=== PATIENT | male | born 1970 | race Caucasian/White ===

== ENCOUNTER 2020-09-26 11:52 | Observation (INO) | payer SELFPAY ==
--- NOTE | 2020-09-26 12:53 | RAD ---
PORTABLE CHEST 1 VIEW: DATE: 09/26/2020. TIME: 12:30 PM. HISTORY: Chest pain and shortness of breath. COMPARISON: 08/27/2002. FINDINGS: The heart size is normal. The lungs are expanded without lobar consolidation, pneumothoraces, or ple ural effusions. IMPRESSION: No acute process. POS: OFF
[2020-09-26 14:06] LABS: #Basophils 0.1 thou/uL (0.0-0.2); #Eosinphils 0.2 thou/uL (0.0-0.7); #Lymphocytes 2.2 thou/uL (1.20-3.40); #Neutrophils 7.1 thou/uL (1.40-6.50); %Basophils 0.7 % (0.0-1.0); %Eosinophils 2.1 % (0.0-10.0); %Lymphocytes 21.1 % (21.0-51.0); %Neutrophils 67.2 % (42.0-75.0); Hemoglobin 16.7 g/dL (14.0-18.0); Mean Corpuscular HGB CONC 33.7 g/dL (32.0-36.0); Mean Corpuscular Hemoglobin 32.4 pg (27.0-31.0); Mean Corpuscular Volume 95.9 fL (78.0-98.0); Mean Platelet Volume 8.2 fL (7.4-10.4); Platelet Count 251 thou/uL (130-400); RBC Distribution Width 11.7 % (11.5-14.5); Red Blood Cell (RBC) Count 5.16 mill/uL (4.70-6.10); White Blood Cell (WBC) Count 10.6 thou/uL (4.8-10.8)
[2020-09-26 14:09] LABS: ALT (SGPT) 25 U/L (8-55); AST (SGOT) 18 U/L (5-34); Albumin 4.3 g/dL (3.5-5.0); Alkaline Phosphatase 71 U/L (40-110); Anion Gap 13 mmol/L (10-20); BUN (Urea Nitrogen) 13 mg/dL (8.9-20.6); Bilirubin, Total 0.5 mg/dL (0.2-1.2); Calc. Creatinine Clearance 0 mL/min (70-130); Calcium 9.3 mg/dL (7.8-10.44); Carbon Dioxide 22 mmol/L (22-29); Chloride 105 mmol/L (98-107); Glucose 128 mg/dL (70-105); Lipase 16 U/L (8-78); Potassium 3.9 mmol/L (3.5-5.1); Protein, Total 7.3 g/dL (6.0-8.3); Sodium 136 mmol/L (136-145)
[2020-09-26] MEDS ORDERED: Aspirin Chewable 81 MG TAB ONE (14:09)
--- NOTE | 2020-09-26 16:30 | PDOC.FPRHP ---
- History of Present Illness Chief Complaint: CP History of Present Illness: Pt is a 50yo male w/ hx of GERD, tobacco abuse and obesity who presents with CP. Pain started today while at rest, located in center of chest with radiation to back. felt like pressure "something sitting on my chest", lasted 45min, went away with rest. Associated nausea and SOB. Last night he started feeling "weird", had mild SOB and numbness/tingling of his hands and feet. He went to sleep and when he woke up this morning he felt fine. He has not had an episode like this in the past. He does not have a PCP and does not take any meds. He smokes 1 pack of cigarettes per day for 14 years. His father has a history of CABG x4. 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 Mom- drug abuse, cancer Social: Smokes 1 pack cigarettes per day x 14 years, drinks once every few months, no drug use - Review of Systems General: denies: fever/chills, weight/appetite/sleep changes Eyes: denies: eye pain, vision changes ENT: denies: nasal congestion, rhinorrhea Respiratory: reports: shortness of breath. denies: cough, congestion Cardiovascular: reports: chest pain. denies: edema, orthopnea Gastrointestinal: reports: nausea. denies: vomiting, diarrhea Genitourinary: denies: dysuria Skin: denies: rashes Musculoskeletal: denies: pain, tenderness Neurological: reports: numbness. denies: syncope Psychological: denies: anxiety, depression - Vital signs BP: 142/98, HR 76, RR 16, T 97.7, O2 98% on RA, Wt 133 kg - Physical Exam Constitutional: NAD, awake, alert and oriented HEENT: normocephalic and atraumatic, no scleral icterus, grossly normal vision, grossly normal hearing Neck: supple, FROM, no JVD Chest: no-tender to palpation, no lesions Heart: RRR, normal S1/S2, no murmurs/rubs/gallops, pulses present, no edema Lungs: CTAB, no respiratory distress, no wheezing Abdomen: soft, non-tender, bowel sounds present Musculoskeletal: normal structure, normal tone, ROM grossly normal Neurological: no focal deficit Skin: no rash/lesions, capillary refill <2 seconds, no jaundice Heme/Lymphatic: no unusual bruising or bleeding Psychiatric: normal mood and affect, good judgment and insight, intact recent and remote memory FMR H&P: Results - Labs Result Diagrams: 09/26/20 13:58 09/26/20 13:25 Lab results: WBC 10.6 thou/uL (4.8-10.8) 09/26/20 13:58 Hgb 16.7 g/dL (14.0-18.0) 09/26/20 13:58 Hct 49.5 % (42.0-52.0) 09/26/20 13:58 MCV 95.9 fL (78.0-98.0) 09/26/20 13:58 Plt Count 251 thou/uL (130-400) 09/26/20 13:58 Neutrophils % 67.2 % (42.0-75.0) 09/26/20 13:58 Sodium 136 mmol/L (136-145) 09/26/20 13:25 Potassium 3.9 mmol/L (3.5-5.1) 09/26/20 13:25 Chloride 105 mmol/L (98-107) 09/26/20 13:25 Carbon Dioxide 22 mmol/L (22-29) 09/26/20 13:25 BUN 13 mg/dL (8.9-20.6) 09/26/20 13:25 Creatinine 1.00 mg/dL (0.7-1.3) 09/26/20 13:25 Glucose 128 mg/dL (70-105) H 09/26/20 13:25 Calcium 9.3 mg/dL (7.8-10.44) 09/26/20 13:25 Total Bilirubin 0.5 mg/dL (0.2-1.2) 09/26/20 13:25 AST 18 U/L (5-34) 09/26/20 13:25 ALT 25 U/L (8-55) 09/26/20 13:25 Alkaline Phosphatase 71 U/L (40-110) 09/26/20 13:25 Serum Total Protein 7.3 g/dL (6.0-8.3) 09/26/20 13:25 Albumin 4.3 g/dL (3.5-5.0) 09/26/20 13:25 Lipase 16 U/L (8-78) 09/26/20 13:25 - EKG Interpretation EKG: reviewed: NSR, no ST changes FMR H&P: A/P - Plan Pt is a 50yo male with hx of GERD, obesity and tobacco abuse who presens with CP #Typical Chest Pain 2/2 GERD vs ACS -ekg: NSR, no ST changes -trop <0.01, will trend -Heart Score 5 -s/p aspirin and 1L IVF in ED -pending stress test in am, will consult cards if abnormal -will start protonix daily and can discharge on this med if stress normal -pending risk stratifying labs -admit to tele for continuous monitor #Hx of GERD s/p [place] fundoplication -not on any meds, no PCP -protonix as above #Tobacco Abuse -encourage cessation Code: Full PCP: CC IVF: SL Diet: HH, NPO Midnight Dispo: Admit tele obs, pending stress in am FMR H&P: Upper Level - Plan Date/Time: 09/26/20 1630 Jeremy West [email or web address], have evaluated this patient and agree with findings/plan as outlined by network intern resident. Pertinent changes/additions are listed here. 50-year-old male with past medical history of obesity and GERD status post [place] fundoplication who presents for chest pain. Chest pain presented yesterday, in the sternum, pressure-like character with no radiation or transforming factors. It has spontaneously resolved. Related tingling in fingers and toes when he was feeling the chest pain. On exam he is hypertensive but otherwise has normal vitals, heart has regular rate and rhythm with no murmurs, lungs clear to auscultation bilaterally, pain is not reproducible, lower extremities do not have edema Assessment and plan Chest pain secondary to GERD, rule out ACS considering history this is likely secondary to GERD. However he has considerable risk factors with his obesity And would benefit from risk stratification. First troponin is negative, normal chest x-ray, normal EKG. Will admit to telemetry for observation. Trend troponins, fasting lipid panel in the morning, TSH magnesium and Phos,. We will keep him n.p.o. at midnight and plan to stress test tomorrow. Will give 1 dose of pantoprazole in hopes that it resolves the pain medical terminologist but will risk stratify regardless. GERD Start Protonix per plan above Code: Full Dispo: For observation, expect less than 2 midnights Diet: Heart healthy, n.p.o. at midnight Fluids: KVO Addendum - Attending - Attending Attestation Date/Time: 09/26/20 4322 I personally evaluated the patient and discussed the management with Dr. Lynch. I agree with the History, Examination, Assessment and Plan documented above with any addition or exceptions noted below.
[2020-09-26] MEDS ORDERED: Ondansetron ODT 4 MG TAB PO PRN (16:51)
[2020-09-26] MEDS ORDERED: Acetaminophen 325 MG TAB PO PRN (16:51)
[2020-09-26] MEDS ORDERED: Ondansetron PF 4 MG/2 ML Vial IVP PRN (16:51)
[2020-09-26 17:57] VITALS: BMI 39.7
[2020-09-26 18:11] LABS: Phosphorus 3.6 mg/dL (2.3-4.7); Troponin I Less than 0.010 ng/mL (< 0.028)
[2020-09-26 21:40] LABS: Troponin I Less than 0.010 ng/mL (< 0.028)
[2020-09-26 23:10] LABS: Hemoglobin A1c 5.2 % (4.0-6.0)
[2020-09-27 04:13] LABS: SARS-CoV-2 PCR by NAA Not Detected (NotDetected)
[2020-09-27 05:16] LABS: Cardiac Risk 4.9 (Less than 4.5)
--- NOTE | 2020-09-27 05:57 | PDOC.FM ---
- Subjective Subjective: Pt doing well this morning. States his CP has resolved. He is currently NPO awaiting stress test this morning - Objective Vital Signs & Weight: Weight Weight 133 kg Result Diagrams: 09/26/20 13:58 09/26/20 13:25 Phys Exam - Physical Examination Constitutional: NAD Neck: supple, full ROM Respiratory: no wheezing, clear to auscultation bilateral Cardiovascular: RRR, no significant murmur Gastrointestinal: soft, non-tender, no distention Musculoskeletal: no edema Neurological: non-focal Psychiatric: normal affect, A&O x 3 Dx/Plan - Plan Plan: Pt is a 50yo male with hx of GERD, obesity and tobacco abuse who presens with CP #Typical Chest Pain 2/2 GERD vs ACS -ekg: NSR, no ST changes -trop <0.01 x3 -Heart Score 5 -s/p aspirin and 1L IVF in ED -pending stress test this morning, will consult cards if abnormal -started protonix daily and can discharge on this med if stress normal -admit to tele for continuous monitor -ASCVD 9.1%: will start mod-high intensity statin and recommend f/u with PCP #Hx of GERD s/p Gilda fundoplication -not on any meds, no PCP -protonix as above #Tobacco Abuse -encourage cessation Code: Full PCP: DON IVF: SL Diet: HH, NPO Midnight Dispo: Admit tele obs, pending stress test this am Addendum - Attending - Attending Attestation Date/Time: 09/27/20 9054 I personally evaluated the patient and discussed the management with Dr. Lynch. I agree with the History, Examination, Assessment and Plan documented above with any addition or exceptions noted below.
[2020-09-27] MEDS ORDERED: Enoxaparin Sodium 40 MG/0.4 ML SYRINGE ONE (08:10)
[2020-09-27] MEDS: Enoxaparin Sodium 40 MG/0.4 ML SYRINGE SC SCH (08:54)
[2020-09-27] MEDS ORDERED: Atorvastatin Calcium 20 MG TAB PO SCH (21:00)
--- NOTE | 2020-09-28 06:13 | PDOC.FM ---
- Subjective Subjective: Pt resting comfortably. Was able to complete day 1 of stress test yesterday with no reported problems and waiting for second part today. Denies CP, SOB, N/V. - Objective Vital Signs & Weight: Vital Signs (12 hours) Temp Pulse Resp BP Pulse Ox 09/28/20 04:37 98.1 F 59 L 16 156/83 H 96 09/28/20 00:12 98.4 F 52 L 16 132/82 95 09/27/20 20:30 98.7 F 55 L 16 134/98 H 95 Weight Weight 132.903 kg I&O: 09/26/20 09/27/20 09/28/20 06:59 06:59 06:59 Intake Total 730 Output Total 300 Balance 430 Result Diagrams: 09/26/20 13:58 09/26/20 13:25 Phys Exam - Physical Examination Constitutional: NAD HEENT: sclera anicteric Neck: supple, full ROM Respiratory: no wheezing, clear to auscultation bilateral Cardiovascular: RRR, no significant murmur Gastrointestinal: soft, non-tender, no distention Musculoskeletal: no edema, pulses present Neurological: non-focal Psychiatric: normal affect, A&O x 3 Dx/Plan - Plan Plan: Pt is a 50yo male with hx of GERD, obesity and tobacco abuse who presents with CP #Typical Chest Pain 2/2 GERD vs ACS -ekg: NSR, no ST changes -trop <0.01 x3 -Heart Score 5 -s/p aspirin and 1L IVF in ED -pending days 2 of stress test this morning, will consult cards if abnormal -started protonix daily and can discharge on this med if stress normal -admit to tele for continuous monitor -ASCVD 9.1%: will start mod-high intensity statin and recommend f/u with PCP #Hx of GERD s/p Gilda fundoplication -not on any meds, no PCP -protonix as above #Tobacco Abuse -encourage cessation Code: Full PCP: DON IVF: SL Diet: HH, NPO Midnight Dispo: Admit tele obs, pending stress test this am Addendum - Attending - Attending Attestation Date/Time: 09/28/20 5522 I personally evaluated the patient and discussed the management with Dr. Lynch. I agree with the History, Examination, Assessment and Plan documented above with any addition or exceptions noted below.
[2020-09-28 07:20] VITALS: BP 138/87; TEMP 98.8
[2020-09-28] MEDS ORDERED: FLU VACC QS2020-21(6MOS UP)/PF 60 MCG/0.5 ML SYRINGE IM ONE (09:00)
[2020-09-28] MEDS: Enoxaparin Sodium 40 MG/0.4 ML SYRINGE SC SCH (09:01)
--- NOTE | 2020-09-28 09:05 | NM ---
EXAM: CARDIAC SPECT HISTORY: Chest pain TECHNIQUE: A myocardial perfusion scan was performed using the single isotope 2 day protocol with arabella hnetium 99m sestamibi. [32 mCi] was injected intravenously for the rest exam and 30 mCi for the stress study. Exercise stress was monitored and interpreted by Dr. Santamaria FINDINGS: Homogeneous tracer distribution is seen in the myocardial segments on stress and rest image s without fixed or reversible defects. Gated SPECT LVEF: 68% Wall motion exam: Normal IMPRESSION: Normal myocardial perfusion scan
--- NOTE | 2020-09-29 14:52 | DIS ---
DATE OF ADMISSION: 09/26/2020 DATE OF DISCHARGE: 09/28/2020 RESIDENT: Yarelis Lynch, PGY-1 DISCHARGE ATTENDING: Juan C Odne MD. CONSULT: None. PROCEDURES: Nuclear medicine stress test with results of normal myocardial perfusion scan, left ventricular ejection fraction 68%, wall motion exam normal. PRIMARY DIAGNOSES: Typical chest pain, acute coronary syndrome rule out. SECONDARY DIAGNOSES: 1. History of gastroesophageal reflux disease, status post Gilda fundoplication. 2. Tobacco abuse. DISCHARGE MEDICATIONS: 1. Atorvastatin 20 mg daily. 2. Protonix 40 mg daily. HISTORY OF PRESENT ILLNESS: The patient is a 50-year-old male with history of obesity, GERD, tobacco abuse, who presented with chest pain. The chest pain was located in the center of the chest, lasted 45 minutes, felt like pressure sitting on his chest, went away with rest. Never had chest pain like this before. Associated with nausea and shortness of breath. The patient does not have a PCP and does not take any medications on a regular basis. He does smoke 1 pack of cigarettes a day for 14 years. He has a positive family history of his father having a CABG x4. The patient's lab work on admission; white count 10.6, hemoglobin 16.7, hematocrit 49.5, platelets 251. Sodium 136, potassium 3.9, BUN 13, creatinine 1, AST 18, ALT 25. Troponin was negative x3. Chest x-ray showed no acute process. The patient was admitted and planned for nuclear medicine stress test next day. Had to do a 2-day stress test. The patient tolerated procedure well with results as above. Based on the risk stratifying labs, the patient was started on statin and encouraged to establish care with a PCP. With his history of GERD and Gilda fundoplication, it was likely that the chest pain was secondary to that, but he has several risk factors for acute coronary syndrome. DISPOSITION: Stable. DISCHARGE INSTRUCTIONS: 1. Location: Home. 2. Diet: Heart healthy. 3. Activity: As tolerated. 4. Followup: Needs to establish care with PCP to continue getting refills of statin and PPI. Job ID: [id number]
== END 2020-09-28 10:20 | disposition home or self-care (01) ==
LOC: ERS 11:52 → ERHOLD 16:23 → 2NO 09-27 12:43
PROVIDERS: ADMIT Family Medicine; ATTEND Family Medicine
DX: R07.2 Precordial pain (principal); K21.9 Gastro-esophageal reflux disease without esophagitis; F17.210 Nicotine dependence, cigarettes, uncomplicated; I10 Essential (primary) hypertension; E66.9 Obesity, unspecified; Z68.39 Body mass index [BMI] 39.0-39.9, adult; Z20.828 Contact with and (suspected) exposure to other viral communicable diseases; Z89.021 Acquired absence of right finger(s)
CPT/HCPCS: 36415; 71045; 78452; 80053; 80061; 83036; 83690; 83735; 84100; 84443; 84484; 85025; 87635; 93005; 93017; 94760; 96372; A9500; G0378; J1650; U0003; U0005

== ENCOUNTER 2022-02-08 17:26 | Emergency (ER) | payer OTHER, SELFPAY ==
[2022-02-08 18:03] LABS: #Basophils 0.1 thou/uL (0.0-0.2); #Eosinphils 0.3 thou/uL (0.0-0.7); #Lymphocytes 2.3 thou/uL (1.20-3.40); #Monocytes 1.3 thou/uL (0.11-0.59); #Neutrophils 7.6 thou/uL (1.40-6.50); %Basophils 0.7 % (0.0-1.0); %Eosinophils 2.7 % (0.0-10.0); %Lymphocytes 19.9 % (21.0-51.0); %Monocytes 11.5 % (0.0-10.0); %Neutrophils 65.2 % (42.0-75.0); Hemoglobin 17.4 g/dL (14.0-18.0); Mean Corpuscular Hemoglobin 33.1 pg (27.0-31.0); Mean Platelet Volume 8.7 fL (7.4-10.4); Platelet Count 197 thou/uL (130-400); RBC Distribution Width 12.2 % (11.5-14.5); Red Blood Cell (RBC) Count 5.27 mill/uL (4.70-6.10); White Blood Cell (WBC) Count 11.7 thou/uL (4.8-10.8)
[2022-02-08 19:48] LABS: Albumin 4.2 g/dL (3.5-5.0)
[2022-02-08 19:50] LABS: Chloride 106 mmol/L (98-107); Potassium 4.5 mmol/L (3.5-5.1); Sodium 138 mmol/L (136-145)
[2022-02-08 19:51] LABS: Globulin 3.3 g/dL (2.4-3.5); Glucose 95 mg/dL (70-105); Protein, Total 7.5 g/dL (6.0-8.3)
[2022-02-08 19:52] LABS: Anion Gap 17 mmol/L (10-20); Carbon Dioxide 20 mmol/L (22-29)
[2022-02-08 19:54] LABS: Alkaline Phosphatase 68 U/L (40-110); Calc. Creatinine Clearance 0 mL/min (70-130)
[2022-02-08 19:55] LABS: BUN (Urea Nitrogen) 17 mg/dL (8.9-20.6)
[2022-02-08 19:56] LABS: AST (SGOT) 25 U/L (5-34)
[2022-02-08 19:57] LABS: ALT (SGPT) 30 U/L (8-55); Lipase 16 U/L (8-78)
[2022-02-08 20:18] LABS: Calcium 9.4 mg/dL (7.8-10.44)
[2022-02-08] MEDS ORDERED: Ketorolac Tromethamine 30 MG/ML VIAL ONE (20:32)
[2022-02-08 20:34] LABS: Bilirubin, Total 0.5 mg/dL (0.2-1.2)
[2022-02-08 21:01] LABS: Bilirubin Negative (Negative); Blood, Urine 3+ (Negative); Clarity Turbid (Clear); Glucose, Urine (Dipstick) Normal (Negative); Ketone, Urine Negative (Negative); Leukocyte Negative Leu/uL (Negative); Mucous/LPF Rare LPF (<2+); Nitrite Negative (Negative); Protein, Urine (Dipstick) 30 mg/dL (Neg-Trace); RBC/HPF Greater than 50 HPF (0-3); Renal Epithelial 0-3 HPF (None Seen); Specific Gravity, Urine 1.024 (1.002-1.036); Squamous Epithelial 0-3 HPF (0-3); Urobilinogen Normal mg/dL (Less than 2)
[2022-02-08 21:12] LABS: Bacteria/HPF 1+ HPF (None Seen)
[2022-02-08] MEDS ORDERED: Morphine 4 MG/ML VIAL ONE (22:03)
[2022-02-08] MEDS ORDERED: Morphine 2 MG/ML VIAL ONE (22:03)
== END 2022-02-08 22:27 | disposition home or self-care (01) ==
LOC: ERS 17:26
DX: N13.2 Hydronephrosis with renal and ureteral calculous obstruction (principal); K21.9 Gastro-esophageal reflux disease without esophagitis; F17.210 Nicotine dependence, cigarettes, uncomplicated
CPT/HCPCS: 36415; 74176; 80053; 81003; 81015; 83690; 85025; 96374; 96375; J1885; J2270

== ENCOUNTER 2022-02-09 09:21 | Day surgery (SDC) | payer OTHER, SELFPAY ==
[2022-02-09 10:27] LABS: #Basophils 0.1 thou/uL (0.0-0.2); #Eosinphils 0.1 thou/uL (0.0-0.7); #Lymphocytes 1.8 thou/uL (1.20-3.40); #Monocytes 1.5 thou/uL (0.11-0.59); #Neutrophils 9.2 thou/uL (1.40-6.50); %Basophils 0.5 % (0.0-1.0); %Eosinophils 1.2 % (0.0-10.0); %Lymphocytes 14.3 % (21.0-51.0); %Monocytes 11.4 % (0.0-10.0); %Neutrophils 72.6 % (42.0-75.0); Hemoglobin 16.2 g/dL (14.0-18.0); Mean Corpuscular HGB CONC 31.9 g/dL (32.0-36.0); Mean Corpuscular Hemoglobin 32.1 pg (27.0-31.0); Mean Platelet Volume 9.1 fL (7.4-10.4); Platelet Count 153 thou/uL (130-400); RBC Distribution Width 12.1 % (11.5-14.5); Red Blood Cell (RBC) Count 5.03 mill/uL (4.70-6.10); White Blood Cell (WBC) Count 12.7 thou/uL (4.8-10.8)
[2022-02-09] MEDS ORDERED: Ondansetron PF 4 MG/2 ML Vial ONE ×2 (10:49→14:32)
[2022-02-09] MEDS ORDERED: Ketorolac Tromethamine 30 MG/ML VIAL ONE ×2 (10:49→14:32)
[2022-02-09 11:39] LABS: Bacteria/HPF None Seen HPF (None Seen); Bilirubin Negative (Negative); Blood, Urine 2+ (Negative); Clarity Clear (Clear); Glucose, Urine (Dipstick) Normal (Negative); Ketone, Urine Negative (Negative); Leukocyte 25 Leu/uL (Negative); Nitrite Negative (Negative); Protein, Urine (Dipstick) 20 mg/dL (Neg-Trace); Specific Gravity, Urine 1.033 (1.002-1.036); Urobilinogen Normal mg/dL (Less than 2); pH, Urine 5.5 (5.0-9.0)
[2022-02-09] MEDS ORDERED: cefTRIAXone\\ROCEPHIN 2 GM VIAL ONE (11:51)
[2022-02-09] MEDS ORDERED: fentaNYL Citrate/PF 100 MCG/2 ML SYRINGE ONE (12:49)
[2022-02-09 13:05] LABS: SARS-CoV-2 NAA Rapid Test Not Detected (NotDetected)
[2022-02-09 13:48] LABS: ALT (SGPT) 21 U/L (8-55); AST (SGOT) 17 U/L (5-34); Albumin 3.6 g/dL (3.5-5.0); Alkaline Phosphatase 58 U/L (40-110); Anion Gap 14 mmol/L (10-20); BUN (Urea Nitrogen) 21 mg/dL (8.9-20.6); Bilirubin, Total 0.7 mg/dL (0.2-1.2); Calc. Creatinine Clearance 0 mL/min (70-130); Carbon Dioxide 21 mmol/L (22-29); Chloride 105 mmol/L (98-107); Globulin 2.9 g/dL (2.4-3.5); Glucose 83 mg/dL (70-105); Potassium 4.2 mmol/L (3.5-5.1); Protein, Total 6.5 g/dL (6.0-8.3); Sodium 136 mmol/L (136-145)
[2022-02-09] MEDS ORDERED: Iopamidol 15 ML ONE (14:22)
[2022-02-09] MEDS ORDERED: Levofloxacin 500 mg/D5W 100 ml Premix Bag ONE (14:32)
[2022-02-09] MEDS ORDERED: Lidocaine 1% PF 5 ML VIAL ONE (14:32)
[2022-02-09] MEDS ORDERED: PROPOFOL 200 MG/20 ML VIAL ONE (14:32)
[2022-02-09] MEDS ORDERED: Dexamethasone 20 MG/5 ML VIAL ONE (14:32)
[2022-02-09] MEDS ORDERED: Phenazopyridine HCl 100 MG TAB ONE (15:41)
[2022-02-09] MEDS ORDERED: Oxybutynin 5 MG TAB ONE (15:41)
== END 2022-02-09 16:30 | disposition home or self-care (01) ==
LOC: ERS 09:21 → SDC 13:49
PROVIDERS: ATTEND Urology
PROC: 0TC68ZZ Extirpation of Matter from Right Ureter, Via Natural or Artificial Opening Endoscopic (ICD-10-PCS; principal; 2022-02-09)
PROC: 0T768DZ Dilation of Right Ureter with Intraluminal Device, Via Natural or Artificial Opening Endoscopic (ICD-10-PCS; principal; 2022-02-09)
DX: N13.2 Hydronephrosis with renal and ureteral calculous obstruction (principal); K21.9 Gastro-esophageal reflux disease without esophagitis; F17.210 Nicotine dependence, cigarettes, uncomplicated; Z79.899 Other long term (current) drug therapy
CPT/HCPCS: 36415; 74420; 80053; 81003; 82365; 85025; 87086; 88300; 94760; 96365; 96375; C2617; J0696; J1100; J1885; J1956; J2405; J2704; Q9967; U0002

== ENCOUNTER 2022-12-21 12:22 | Inpatient (IN) | payer SELFPAY ==
[~2022-12-21 12:22] MED LIST: Iopamidol-370 76% 500 ML MDV (1 ML CHARGE) ONE
[2022-12-21 12:50] LABS: #Eosinphils 0.3 thou/uL (0.0-0.7); #Monocytes 0.8 thou/uL (0.11-0.59); #Neutrophils 7.9 thou/uL (1.40-6.50); %Basophils 0.4 % (0.0-1.0); %Eosinophils 2.4 % (0.0-10.0); %Monocytes 7.5 % (0.0-10.0); %Neutrophils 71.7 % (42.0-75.0); Hemoglobin 16.9 g/dL (14.0-18.0); Mean Corpuscular HGB CONC 34.5 g/dL (32.0-36.0); Mean Corpuscular Hemoglobin 33.7 pg (27.0-31.0); Mean Corpuscular Volume 97.5 fl (78.0-98.0); Mean Platelet Volume 8.3 fL (7.4-10.4); Platelet Count 223 10x3/uL (130-400); RBC Distribution Width 11.7 % (11.5-14.5); Red Blood Cell (RBC) Count 5.02 mill/uL (4.70-6.10)
[2022-12-21 13:14] LABS: ALT (SGPT) 28 U/L (8-55); AST (SGOT) 19 U/L (5-34); Albumin 4.3 g/dL (3.5-5.0); Alkaline Phosphatase 59 U/L (40-110); Anion Gap 13 mmol/L (10-20); BUN (Urea Nitrogen) 20 mg/dL (8.9-20.6); Bilirubin, Total 0.6 mg/dL (0.2-1.2); Calc. Creatinine Clearance 0 mL/min (70-130); Calcium 9.2 mg/dL (7.8-10.44); Carbon Dioxide 19 mmol/L (22-29); Chloride 107 mmol/L (98-107); Estimated GFR 82; Globulin 3.1 g/dL (2.4-3.5); Glucose 97 mg/dL (70-105); Potassium 4.3 mmol/L (3.5-5.1); Protein, Total 7.4 g/dL (6.0-8.3); Sodium 135 mmol/L (136-145)
[2022-12-21 14:13] LABS: Bacteria/HPF None Seen HPF (None Seen); Bilirubin Negative (Negative); Blood, Urine Negative (Negative); Clarity Clear (Clear); Glucose, Urine (Dipstick) Normal (Negative); Ketone, Urine Negative (Negative); Leukocyte 75 Leu/uL (Negative); Nitrite Negative (Negative); Protein, Urine (Dipstick) 10 mg/dL (Neg-Trace); RBC/HPF 0-3 HPF (0-3); Specific Gravity, Urine 1.031 (1.002-1.036); Squamous Epithelial 0-3 HPF (0-3); Urobilinogen Normal mg/dL (Less than 2); pH, Urine 5.5 (5.0-9.0)
[2022-12-21] MEDS ORDERED: Doxycycline 100 MG CAP ONE (16:04)
[2022-12-21] MEDS ORDERED: metroNIDAZOLE 250 MG TAB ONE (16:04)
[2022-12-21] MEDS ORDERED: cefTRIAXone (ROCEPHIN) 500 MG VIAL ONE (16:04)
[2022-12-21] MEDS ORDERED: Lidocaine 1% MPF 2 ML VIAL ONE (16:05)
[2022-12-21 17:39] VITALS: BMI 40.2
[2022-12-21] MEDS ORDERED: Ondansetron PF 4 MG/2 ML Vial IVP PRN (18:21)
[2022-12-21] MEDS ORDERED: Nicotine 21 MG PATCH TD PRN (18:21)
[2022-12-21] MEDS ORDERED: Ondansetron ODT 4 MG TAB PO PRN (18:21)
[2022-12-21 18:57] LABS: Syphilis Antibody Nonreactive (Nonreactive); Syphilis Antibody Index 0.01 S/CO (<1.00 Non-Reactive)
[2022-12-21] MEDS: Ketorolac Tromethamine 30 MG/ML VIAL IVP PRN (21:37)
[2022-12-22 06:27] LABS: #Eosinphils 0.4 thou/uL (0.0-0.7); #Lymphocytes 2.3 thou/uL (1.20-3.40); #Monocytes 0.9 thou/uL (0.11-0.59); #Neutrophils 5.4 thou/uL (1.40-6.50); %Basophils 0.5 % (0.0-1.0); %Lymphocytes 25.7 % (21.0-51.0); %Monocytes 10.2 % (0.0-10.0); %Neutrophils 59.6 % (42.0-75.0); Hemoglobin 16.5 g/dL (14.0-18.0); Mean Corpuscular HGB CONC 34.4 g/dL (32.0-36.0); Mean Corpuscular Hemoglobin 33.8 pg (27.0-31.0); Mean Corpuscular Volume 98.4 fl (78.0-98.0); Mean Platelet Volume 8.4 fL (7.4-10.4); Platelet Count 201 10x3/uL (130-400); RBC Distribution Width 11.8 % (11.5-14.5); Red Blood Cell (RBC) Count 4.88 mill/uL (4.70-6.10)
[2022-12-22 06:44] LABS: Anion Gap 12 mmol/L (10-20); BUN (Urea Nitrogen) 21 mg/dL (8.9-20.6); Calc. Creatinine Clearance 154 mL/min (70-130); Calcium 9.3 mg/dL (7.8-10.44); Carbon Dioxide 22 mmol/L (22-29); Chloride 106 mmol/L (98-107); Estimated GFR 83; Glucose 87 mg/dL (70-105); Potassium 4.1 mmol/L (3.5-5.1); Sodium 136 mmol/L (136-145)
[2022-12-22] MEDS: Doxycycline 100 MG CAP PO SCH ×2 (08:38→21:16)
[2022-12-22] MEDS: metroNIDAZOLE 500 MG TAB PO SCH ×2 (08:39→21:16)
[2022-12-22] MEDS: Ketorolac Tromethamine 30 MG/ML VIAL IVP PRN ×2 (08:40→21:17)
[2022-12-22] MEDS ORDERED: Hydrocortisone 1% Cream 30 GM TUBE TOP SCH (09:00)
[2022-12-22] MEDS: Clotrimazole 1 % Cream 30 GM TUBE TOP SCH ×2 (09:20→21:16)
[2022-12-22 11:28] LABS: HIV (1/2) Antibody/Antigen Non-Reactive (NonReactive); HIV 1/2 INDEX 0.36 S/CO (<1.00)
[2022-12-22] MEDS: cefTRIAXone\\ROCEPHIN 2 GM in Sodium Chloride 0.9% 100 ML IVPB SCH (15:57)
[2022-12-23] MEDS: Acetaminophen 325 MG TAB PO PRN ×3 (01:04→20:36)
[2022-12-23 06:18] LABS: #Eosinphils 0.4 thou/uL (0.0-0.7); #Lymphocytes 1.8 thou/uL (1.20-3.40); #Monocytes 0.7 thou/uL (0.11-0.59); #Neutrophils 4.1 thou/uL (1.40-6.50); %Basophils 0.2 % (0.0-1.0); %Eosinophils 5.7 % (0.0-10.0); %Lymphocytes 25.7 % (21.0-51.0); %Monocytes 9.5 % (0.0-10.0); %Neutrophils 58.9 % (42.0-75.0); Hemoglobin 16.4 g/dL (14.0-18.0); Mean Corpuscular HGB CONC 32.9 g/dL (32.0-36.0); Mean Corpuscular Hemoglobin 32.5 pg (27.0-31.0); Mean Corpuscular Volume 98.7 fl (78.0-98.0); Mean Platelet Volume 8.4 fL (7.4-10.4); Platelet Count 198 10x3/uL (130-400); RBC Distribution Width 11.9 % (11.5-14.5); Red Blood Cell (RBC) Count 5.06 mill/uL (4.70-6.10)
[2022-12-23 06:34] LABS: Anion Gap 11 mmol/L (10-20); BUN (Urea Nitrogen) 23 mg/dL (8.9-20.6); Calc. Creatinine Clearance 175 mL/min (70-130); Calcium 8.9 mg/dL (7.8-10.44); Carbon Dioxide 22 mmol/L (22-29); Chloride 107 mmol/L (98-107); Estimated GFR 96; Glucose 92 mg/dL (70-105); Sodium 136 mmol/L (136-145)
[2022-12-23] MEDS: metroNIDAZOLE 500 MG TAB PO SCH ×2 (09:00→20:35)
[2022-12-23] MEDS: Doxycycline 100 MG CAP PO SCH ×2 (09:00→20:35)
[2022-12-23] MEDS: Ketorolac Tromethamine 30 MG/ML VIAL IVP PRN ×2 (09:01→20:40)
[2022-12-23] MEDS: Ketoconazole 2% Cream 15 gm Tube TOP SCH (09:02)
[2022-12-23] MEDS: Senokot 8.6 MG TAB PO PRN (12:18)
[2022-12-23] MEDS: cefTRIAXone\\ROCEPHIN 2 GM in Sodium Chloride 0.9% 100 ML IVPB SCH (17:00)
[2022-12-24 06:32] LABS: #Basophils 0.1 thou/uL (0.0-0.2); #Eosinphils 0.4 thou/uL (0.0-0.7); #Lymphocytes 2.4 thou/uL (1.20-3.40); #Monocytes 0.7 thou/uL (0.11-0.59); #Neutrophils 4.1 thou/uL (1.40-6.50); %Basophils 0.9 % (0.0-1.0); %Eosinophils 5.5 % (0.0-10.0); %Monocytes 8.6 % (0.0-10.0); Hemoglobin 15.8 g/dL (14.0-18.0); Mean Corpuscular HGB CONC 32.6 g/dL (32.0-36.0); Mean Corpuscular Hemoglobin 32.1 pg (27.0-31.0); Mean Corpuscular Volume 98.6 fl (78.0-98.0); Mean Platelet Volume 8.8 fL (7.4-10.4); Platelet Count 203 10x3/uL (130-400); RBC Distribution Width 11.8 % (11.5-14.5); Red Blood Cell (RBC) Count 4.93 mill/uL (4.70-6.10); White Blood Cell (WBC) Count 7.7 10x3/uL (4.8-10.8)
[2022-12-24 06:44] LABS: Anion Gap 12 mmol/L (10-20); BUN (Urea Nitrogen) 21 mg/dL (8.9-20.6); Calc. Creatinine Clearance 189 mL/min (70-130); Calcium 9.4 mg/dL (7.8-10.44); Carbon Dioxide 22 mmol/L (22-29); Chloride 107 mmol/L (98-107); Estimated GFR 104; Glucose 77 mg/dL (70-105); Sodium 137 mmol/L (136-145)
[2022-12-24] MEDS: Doxycycline 100 MG CAP PO SCH (08:16)
[2022-12-24] MEDS: metroNIDAZOLE 500 MG TAB PO SCH (08:16)
[2022-12-24] MEDS: Ketoconazole 2% Cream 15 gm Tube TOP SCH (08:16)
[2022-12-24] MEDS: Senokot 8.6 MG TAB PO PRN (08:18)
[2022-12-24 11:23] LABS: Chlam.trachomatis by PCR,Urine Not Detected (NotDetected); GC N.gonorrhoeae PCR,UrineVOID Not Detected (NotDetected)
[2022-12-24 13:39] VITALS: BP 145/82; TEMP 98.1
== END 2022-12-24 13:51 | disposition home or self-care (01) | DRG 728 ==
LOC: ERS 12:22 → T4-A 16:29 → OBSVTOIN 12-23 16:42
PROVIDERS: ADMIT Family Medicine; ATTEND Hospitalist
DX: N48.1 Balanitis (principal); N39.0 Urinary tract infection, site not specified; F17.210 Nicotine dependence, cigarettes, uncomplicated
CPT/HCPCS: 36415; 74177; 80048; 80053; 81003; 81015; 83605; 85025; 86780; 87040; 87077; 87086; 87149; 87389; 87491; 87529; 87591; 87661; 96372; 96374; 96376; G0378; J0696; J1885; J3490; Q9967

== ENCOUNTER 2022-12-25 00:58 | Emergency (ER) | payer SELFPAY ==
[2022-12-25] MEDS ORDERED: Lidocaine Viscous Sol 2% 15 ml UD Cup ONE (01:44)
== END 2022-12-25 03:10 | disposition home or self-care (01) ==
LOC: ERS 00:58
DX: T21.26XA Burn of second degree of male genital region, initial encounter (principal); K21.9 Gastro-esophageal reflux disease without esophagitis; F17.210 Nicotine dependence, cigarettes, uncomplicated
CPT/HCPCS: 76870; 93976